=== PATIENT | male | born 1965 | race Caucasian/White ===

== ENCOUNTER 2019-01-27 11:37 | Inpatient (IN) | payer OTHER ==
[2019-01-27 12:49] VITALS: BMI 29.2
--- NOTE | 2019-01-27 13:49 | HP ---
CIWA Score Nausea/Vomitin Muscle Tremors: 2 Anxiety: 2 Agitation: 2 Paroxysmal Sweats: 1-Minimal Palms Moist Orientation: 0-Oriented Tacttile Disturbances: 1-Very Mild Itch/Numbness Auditory Disturbances: 1-Very Mild Visual Disturbances: 0-None Headache: 2-Mild CIWA-Ar Total Score: 13 - Admission Criteria [facility] Guidelines: Admission for Medically Managed Detox: Requires at least one of the followin. CIWA greater than 12 2. Seizures within the past 24 hours 3. Delirium tremens within the past 24 hours 4. Hallucinations within the past 24 hours 5. Acute intervention needed for co occurring medical disorder 6. Acute intervention needed for co occurring psychiatric disorder 7. Severe withdrawal that cannot be handled at a lower level of care (continued vomiting, continued diarrhea, abnormal vital signs) requiring intravenous medication and/or fluids 8. Admission ROS S - HPI Chief Complaint: i need help to stop drinking alcohol,cocaine daily,heroin abused,mmtp 50 mgs/day ,last medicated today Allergies/Adverse Reactions: Allergies Allergy/AdvReac Type Severity Reaction Status Date / Time No Known Allergies Allergy Verified 01/27/19 12:29 History of Present Illness: this 53 years old male with alcohol and cocaine dependence,heroin abused,mmtp 50 mgs/day,last medicated today, last detox 05/05 ayde beebe completed but keep relapsing nicotine dependence requesting nicotine patch and gum weight loss longest period of sobriety 14 months plan for rehab after detox seizure last 18 months ago,on keppra 500 mgs po bid Exam Limitations: No Limitations - Ebola screening Have you traveled outside of the country in the last 21 days: No (N) Have you had contact with anyone from an Ebola affected area: No Do you have a fever: No - Review of Systems Constitutional: Loss of Appetite, Night Sweats, Changes in sleep, Weakness, Unintentional Wgt. Loss EENT: reports: Tearing, Nose Congestion Respiratory: reports: No Symptoms reported Cardiac: reports: No Symptoms Reported GI: reports: Nausea, Poor Appetite, Vomiting, Abdominal cramping : reports: No Symptoms Reported Musculoskeletal: reports: Back Pain, Muscle Pain Integumentary: reports: Dryness Neuro: reports: Headache, Tremors Endocrine: reports: No Symptoms Reported Hematology: reports: No Symptoms Reported Psychiatric: reports: No Sypmtoms Reported, Judgement Intact, Mood/Affect Appropiate, Orientated x3 Other Systems: Reviewed and Negative Patient History - Patient Medical History Hx Anemia: No Hx Asthma: No Hx Chronic Obstructive Pulmonary Disease (COPD): No Hx Cancer: No Hx Cardiac Disorders: No Hx Congestive Heart Failure: No Hx Hypertension: No Hx Hypercholesterolemia: No Hx Pacemaker: No HX Cerebrovascular Accident: No Hx Seizures: Yes (last 18 mpnths ago) Hx Gastrointestinal Disorders: No Hx Liver Disease: No Hx Genitourinary Disorders: No Hx Sexually Transmitted Disorders: No Hx Renal Disease (ESRD): No Hx Thyroid Disease: No Hx Human Immunodeficiency Virus (HIV): No (last 12/07 negative) Hx Hepatitis C: No Hx Depression: No Hx Suicide Attempt: No Hx Bipolar Disorder: No Hx Schizophrenia: No Other Medical History: no suicidal,no homicidal,seizre on keppra - Patient Surgical History Past Surgical History: No - PPD History Previous Implant?: Yes Documented Results: Negative w/o proof Implanted On Prior [facility] Admission?: No PPD to be Administered?: Yes - Smoking Cessation Smoking history: Current every day smoker Have you smoked in the past 12 months: Yes Aproximately how many cigarettes per day: 7 Hx Chewing Tobacco Use: No Initiated information on smoking cessation: Yes 'Breaking Loose' booklet given: 01/27/19 - Substance & Tx. History Hx Alcohol Use: Yes Hx Substance Use: Yes Substance Use Type: Alcohol, Cocaine, Heroin - Substances abused Heroin Substance route: Inhalation Frequency: Daily Amount used: 5 bags Age of first use: 18 Date of last use: 01/27/19 Cocaine Substance route: Smoking Frequency: Daily Amount used: 2 grams Age of first use: 18 Date of last use: 01/27/19 Alcohol Substance route: Oral Frequency: Daily Amount used: 3-6 pks of 12ozs beer, 2 pints of vodka Age of first use: 11 Date of last use: 01/27/19 Family Disease History - Family Disease History Family History: Denies Admission Physical Exam S - Vital Signs Vital Signs: Vital Signs - 24 hr 01/27/19 12:34 Temperature 97 F L Pulse Rate 58 L Respiratory 18 Rate Blood Pressure 136/85 - Physical General Appearance: Yes: Moderate Distress, Tremorous, Irritable, Sweating, Anxious HEENTM: Yes: Normal ENT Inspection, [place], Pharynx Normal Respiratory: Yes: Within Normal Limits, Lungs Clear, Normal Breath Sounds Neck: Yes: Within Normal Limits, Supple, Trachea in good position Breast: Yes: Within Normal Limits Cardiology: Yes: Within Normal Limits, Regular Rhythm, Regular Rate, S1, S2 Abdominal: Yes: Within Normal Limits, Normal Bowel Sounds, Non Tender, Flat, Soft Genitourinary: Yes: Within Normal Limits Back: Yes: Muscle Spasm Musculoskeletal: Yes: full range of Motion, Back pain, Muscle Pain Extremities: Yes: Within Normal Limits, Normal Range of Motion, Tremors Neurological: Yes: rack cleaner II-XII NML intact, Fully Oriented, Alert, Motor Strength 5/5 Integumentary: Yes: Dry Lymphatic: Yes: Within Normal Limits - Diagnostic (1) Alcohol dependence with uncomplicated withdrawal Current Visit: Yes Status: Acute (2) Cocaine dependence Current Visit: Yes Status: Acute (3) Heroin abuse Current Visit: Yes Status: Acute (4) Methadone maintenance therapy patient Current Visit: Yes Status: Acute (5) Weight loss Current Visit: Yes Status: Acute (6) Seizure Current Visit: Yes Status: Acute (7) Nicotine dependence Current Visit: Yes Status: Acute Cleared for Admission [facility] - Detox or Rehab [facility] Level of Care: Medically Managed Detox Regimen/Protocol: Librium Breathalyzer - Breathalyzer Breathalyzer: 0 Urine Drug Screen - Test Device Lot number: [id number] Expiration date: 09/17/20 - Control Is test valid?: Yes - Results Drug screen NEGATIVE: No Urine drug screen results: THC-Marijuana, AGATHA-Cocaine, FEN-Fentanyl, MOP-Opiates , MTD-Methadone, BZO-Benzodiazepines Inpatient Rehab Admission - Rehab Decision to Admit Inpatient rehab admission?: No
[2019-01-27] MEDS ORDERED: MAG HYDROX/AL HYDROX/SIMETH 30 ML UNIT-DOSE CUP PO PRN (14:00)
[2019-01-27] MEDS ORDERED: MENTHOL/PHENOL 1 EACH UD MM PRN (14:00)
[2019-01-27] MEDS ORDERED: IBUPROFEN 400 MG TABLET (FP) PO PRN (14:00)
[2019-01-27] MEDS ORDERED: ACETAMINOPHEN 325 MG TABLET (FP) PO PRN ×2 (14:00)
[2019-01-27] MEDS ORDERED: MELATONIN 5 MG TABLETS PO PRN (14:00)
[2019-01-27] MEDS ORDERED: MAGNESIUM CITRATE 300 ML BOTTLE PO PRN (14:00)
[2019-01-27] MEDS ORDERED: NICOTINE POLACRILEX 2 MG GUM BUC PRN (14:00)
[2019-01-27] MEDS ORDERED: MAGNESIUM HYDROX 2400MG/30ML ORAL SUSPENSION 30 ML CUP PO PRN (14:00)
[2019-01-27] MEDS ORDERED: chlordiazePOXIDE HCL 25 MG CAPSULE PO PRN (14:00)
[2019-01-27] MEDS ORDERED: BISMUTH SUBSALICYLATE 524 MG/30 ML UD PO PRN (14:00)
[2019-01-27] MEDS ORDERED: METHOCARBAMOL 500 MG TABLET PO PRN (14:00)
[2019-01-27] MEDS: NICOTINE 21 MG/24 HOURS TOPICAL PATCH TD SCH (15:47)
--- NOTE | 2019-01-27 16:39 | EKG ---
Test Reason : Blood Pressure : / mmHG Vent. Rate : 042 BPM Atrial Rate : 042 BPM P-R Int : 162 ms QRS Dur : 144 ms QT Int : 532 ms P-R-T Axes : 057 049 050 degrees QTc Int : 444 ms MARKED SINUS BRADYCARDIA RIGHT BUNDLE BRANCH BLOCK ABNORMAL ECG NO PREVIOUS ECGS AVAILABLE Confirmed by JOSE CRUM MD ([id number]) on 01/27/2019 4:39:10 PM Referred By: Confirmed By:JOSE CRUM MD
[2019-01-27 17:06] LABS: HEMATOCRIT 39.8 % (35.4-49); HEMOGLOBIN 13.4 GM/dL (11.7-16.9); MCH 29.8 pg (25.7-33.7); MCHC 33.6 g/dl (32.0-35.9); MEAN CELL VOLUME 88.8 fl (80-96); MEAN PLT VOLUME 10.7 fl (7.5-11.1); PLATELET COUNT 204 K/MM3 (134-434); RBC 4.49 M/mm3 (4.00-5.60); RDW 14.3 % (11.9-15.9); WHITE BLOOD COUNT 6.7 K/mm3 (4.0-10.0)
[2019-01-27] MEDS: chlordiazePOXIDE HCL 25 MG CAPSULE PO SCH ×2 (17:24→22:08)
[2019-01-27 17:30] LABS: ALBUMIN 3.6 g/dl (3.4-5.0); ALK PHOS 61 U/L (45-117); ANION GAP 3 MMOL/L (8-16); BILIRUBIN,TOTAL 0.3 mg/dL (0.2-1); BLOOD UREA NITROGEN 12 mg/dL (7-18); CALCIUM 9.2 mg/dL (8.5-10.1); CHLORIDE 102 mmol/L (98-107); CO2 30 mmol/L (21-32); GLUCOSE,RANDOM 116 mg/dL (74-106); POTASSIUM 4.2 mmol/L (3.5-5.1); SGOT/AST 12 U/L (15-37); SGPT/ALT 28 U/L (13-61); SODIUM 136 mmol/L (136-145); TOT PROT 6.9 g/dl (6.4-8.2)
[2019-01-27 17:51] LABS: SICKLE CELL SCREEN NEGATIVE (NEGATIVE)
[2019-01-27] MEDS: THIAMINE HCL 100 MG TABLET (FP) PO SCH (22:09)
[2019-01-27] MEDS: levETIRAcetam 500 MG TABLET (FP) PO SCH (22:09)
[2019-01-28] MEDS: chlordiazePOXIDE HCL 25 MG CAPSULE PO SCH ×4 (05:35→22:52)
[2019-01-28] MEDS ORDERED: METHADONE HCL 40 MG DISPERSABLE TABLET PO SCH (08:45)
[2019-01-28] MEDS ORDERED: METHADONE HCL 10 MG TABLET ONE (09:36)
[2019-01-28] MEDS ORDERED: METHADONE HCL 40 MG DISPERSABLE TABLET ONE (09:36)
[2019-01-28] MEDS: PRENATAL VITAMINS W/ FOLIC ACID TABLET (FP) PO SCH (11:12)
[2019-01-28] MEDS: levETIRAcetam 500 MG TABLET (FP) PO SCH ×2 (11:12→22:53)
[2019-01-28] MEDS: METHADONE 40 MG, METHADONE 10 MG PO SCH (11:13)
[2019-01-28] MEDS: NICOTINE 21 MG/24 HOURS TOPICAL PATCH TD SCH (11:13)
--- NOTE | 2019-01-28 11:32 | PN ---
S CIWA - CIWA Score Nausea/Vomitin Muscle Tremors: 2 Anxiety: 2 Agitation: 2 Paroxysmal Sweats: 1-Minimal Palms Moist Orientation: 0-Oriented Tacttile Disturbances: 1-Very Mild Itch/Numbness Auditory Disturbances: 1-Very Mild Visual Disturbances: 0-None Headache: 2-Mild CIWA-Ar Total Score: 13 [facility] Progress Note (SOAP) Subjective: alert,irritable,anxious,interrupted sleep,pain in the body,left leg ,localized cellulitis Objective: 01/28/19 11:29 Vital Signs Temperature 97.9 F 01/28/19 09:18 Pulse Rate 66 01/28/19 09:18 Respiratory Rate 20 01/28/19 09:18 Blood Pressure 120/77 01/28/19 09:18 O2 Sat by Pulse Oximetry (%) Vital Signs Temperature 97.9 F 01/28/19 09:18 Pulse Rate 66 01/28/19 09:18 Respiratory Rate 20 01/28/19 09:18 Blood Pressure 120/77 01/28/19 09:18 O2 Sat by Pulse Oximetry (%) Laboratory Last Values WBC 6.7 K/mm3 (4.0-10.0) 01/27/19 13:40 RBC 4.49 M/mm3 (4.00-5.60) 01/27/19 13:40 Hgb 13.4 GM/dL (11.7-16.9) 01/27/19 13:40 Hct 39.8 % (35.4-49) 01/27/19 13:40 MCV 88.8 fl (80-96) 01/27/19 13:40 MCH 29.8 pg (25.7-33.7) 01/27/19 13:40 MCHC 33.6 g/dl (32.0-35.9) 01/27/19 13:40 RDW 14.3 % (11.9-15.9) 01/27/19 13:40 Plt Count 204 K/MM3 (134-434) 01/27/19 13:40 MPV 10.7 fl (7.5-11.1) 01/27/19 13:40 Sickle Cell Screen Negative (NEGATIVE) 01/27/19 13:40 Sodium 136 mmol/L (136-145) 01/27/19 13:40 Potassium 4.2 mmol/L (3.5-5.1) 01/27/19 13:40 Chloride 102 mmol/L (98-107) 01/27/19 13:40 Carbon Dioxide 30 mmol/L (21-32) 01/27/19 13:40 Anion Gap 3 MMOL/L (8-16) L 01/27/19 13:40 BUN 12 mg/dL (7-18) 01/27/19 13:40 Creatinine 1.0 mg/dL (0.55-1.3) 01/27/19 13:40 Creat Clearance w eGFR 78.78 (>60) 01/27/19 13:40 Random Glucose 116 mg/dL (74-106) H 01/27/19 13:40 Calcium 9.2 mg/dL (8.5-10.1) 01/27/19 13:40 Total Bilirubin 0.3 mg/dL (0.2-1) 01/27/19 13:40 AST 12 U/L (15-37) L 01/27/19 13:40 ALT 28 U/L (13-61) 01/27/19 13:40 Alkaline Phosphatase 61 U/L (45-117) 01/27/19 13:40 Total Protein 6.9 g/dl (6.4-8.2) 01/27/19 13:40 Albumin 3.6 g/dl (3.4-5.0) 01/27/19 13:40 Assessment: 01/28/19 11:30 withdrawal symptom Plan: continue detox,regimen adjusted
--- NOTE | 2019-01-28 11:39 | PN ---
[facility] Progress Note Note: please disregard the note on this patient 1t 11.27 am,belong to other patient
--- NOTE | 2019-01-28 11:41 | PN ---
S CIWA - CIWA Score Nausea/Vomitin Muscle Tremors: 2 Anxiety: 2 Agitation: 2 Paroxysmal Sweats: 2 Orientation: 0-Oriented Tacttile Disturbances: 1-Very Mild Itch/Numbness Auditory Disturbances: 1-Very Mild Visual Disturbances: 0-None Headache: 2-Mild CIWA-Ar Total Score: 14 S Progress Note (SOAP) Subjective: alert,irritable,interrupted sleep,tremor Objective: 01/28/19 11:40 Vital Signs Temperature 97.9 F 01/28/19 09:18 Pulse Rate 66 01/28/19 09:18 Respiratory Rate 20 01/28/19 09:18 Blood Pressure 120/77 01/28/19 09:18 O2 Sat by Pulse Oximetry (%) 01/28/19 11:40 Laboratory Last Values WBC 6.7 K/mm3 (4.0-10.0) 01/27/19 13:40 RBC 4.49 M/mm3 (4.00-5.60) 01/27/19 13:40 Hgb 13.4 GM/dL (11.7-16.9) 01/27/19 13:40 Hct 39.8 % (35.4-49) 01/27/19 13:40 MCV 88.8 fl (80-96) 01/27/19 13:40 MCH 29.8 pg (25.7-33.7) 01/27/19 13:40 MCHC 33.6 g/dl (32.0-35.9) 01/27/19 13:40 RDW 14.3 % (11.9-15.9) 01/27/19 13:40 Plt Count 204 K/MM3 (134-434) 01/27/19 13:40 MPV 10.7 fl (7.5-11.1) 01/27/19 13:40 Sickle Cell Screen Negative (NEGATIVE) 01/27/19 13:40 Sodium 136 mmol/L (136-145) 01/27/19 13:40 Potassium 4.2 mmol/L (3.5-5.1) 01/27/19 13:40 Chloride 102 mmol/L (98-107) 01/27/19 13:40 Carbon Dioxide 30 mmol/L (21-32) 01/27/19 13:40 Anion Gap 3 MMOL/L (8-16) L 01/27/19 13:40 BUN 12 mg/dL (7-18) 01/27/19 13:40 Creatinine 1.0 mg/dL (0.55-1.3) 01/27/19 13:40 Creat Clearance w eGFR 78.78 (>60) 01/27/19 13:40 Random Glucose 116 mg/dL (74-106) H 01/27/19 13:40 Calcium 9.2 mg/dL (8.5-10.1) 01/27/19 13:40 Total Bilirubin 0.3 mg/dL (0.2-1) 01/27/19 13:40 AST 12 U/L (15-37) L 01/27/19 13:40 ALT 28 U/L (13-61) 01/27/19 13:40 Alkaline Phosphatase 61 U/L (45-117) 01/27/19 13:40 Total Protein 6.9 g/dl (6.4-8.2) 01/27/19 13:40 Albumin 3.6 g/dl (3.4-5.0) 01/27/19 13:40 Assessment: 01/28/19 11:41 withdrawal symptom Plan: continue detox
[2019-01-28 12:33] LABS: URINE APPEARANCE Clear; URINE BILIRUBIN Negative (NEGATIVE); URINE COLOR Yellow; URINE GLUCOSE (UA) Negative (NEGATIVE); URINE KETONE Negative (NEGATIVE); URINE LEUK ESTERASE Trace (NEGATIVE); URINE NITRITE Negative (NEGATIVE); URINE PROTEIN Negative (NEGATIVE); URINE UROBILINOGEN 0.2 mg/dL (0.2-1.0)
[2019-01-28 13:09] LABS: EPI CELLS OCCASIONAL /HPF; URINE WBC 2 /hpf (0-5)
[2019-01-28] MEDS: hydrOXYzine PAMOATE 25 MG CAPSULE (FP) PO PRN ×2 (17:37→22:52)
[2019-01-28] MEDS: THIAMINE HCL 100 MG TABLET (FP) PO SCH (22:53)
[2019-01-29] MEDS ORDERED: METHADONE HCL 10 MG TABLET ONE (05:37)
[2019-01-29] MEDS ORDERED: METHADONE HCL 40 MG DISPERSABLE TABLET ONE (05:37)
[2019-01-29] MEDS: METHADONE 40 MG, METHADONE 10 MG PO SCH (05:37)
[2019-01-29] MEDS: chlordiazePOXIDE HCL 25 MG CAPSULE PO SCH ×2 (05:38→10:13)
[2019-01-29] MEDS: levETIRAcetam 500 MG TABLET (FP) PO SCH ×2 (10:13→22:21)
[2019-01-29] MEDS: PRENATAL VITAMINS W/ FOLIC ACID TABLET (FP) PO SCH (10:13)
[2019-01-29] MEDS: NICOTINE 21 MG/24 HOURS TOPICAL PATCH TD SCH (10:13)
--- NOTE | 2019-01-29 11:28 | PN ---
S Progress Note (SOAP) Subjective: Nausea, abdominal cramps with occasional chills Objective: 01/29/19 11:27 Vital Signs 01/29/19 01/29/19 01/29/19 03:30 06:23 10:00 Temperature 98.1 F 97.7 F Pulse Rate 67 65 Respiratory 19 19 18 Rate Blood Pressure 105/65 135/62 Laboratory Last Values WBC 6.7 K/mm3 (4.0-10.0) 01/27/19 13:40 RBC 4.49 M/mm3 (4.00-5.60) 01/27/19 13:40 Hgb 13.4 GM/dL (11.7-16.9) 01/27/19 13:40 Hct 39.8 % (35.4-49) 01/27/19 13:40 MCV 88.8 fl (80-96) 01/27/19 13:40 MCH 29.8 pg (25.7-33.7) 01/27/19 13:40 MCHC 33.6 g/dl (32.0-35.9) 01/27/19 13:40 RDW 14.3 % (11.9-15.9) 01/27/19 13:40 Plt Count 204 K/MM3 (134-434) 01/27/19 13:40 MPV 10.7 fl (7.5-11.1) 01/27/19 13:40 Sickle Cell Screen Negative (NEGATIVE) 01/27/19 13:40 Sodium 136 mmol/L (136-145) 01/27/19 13:40 Potassium 4.2 mmol/L (3.5-5.1) 01/27/19 13:40 Chloride 102 mmol/L (98-107) 01/27/19 13:40 Carbon Dioxide 30 mmol/L (21-32) 01/27/19 13:40 Anion Gap 3 MMOL/L (8-16) L 01/27/19 13:40 BUN 12 mg/dL (7-18) 01/27/19 13:40 Creatinine 1.0 mg/dL (0.55-1.3) 01/27/19 13:40 Creat Clearance w eGFR 78.78 (>60) 01/27/19 13:40 Random Glucose 116 mg/dL (74-106) H 01/27/19 13:40 Calcium 9.2 mg/dL (8.5-10.1) 01/27/19 13:40 Total Bilirubin 0.3 mg/dL (0.2-1) 01/27/19 13:40 AST 12 U/L (15-37) L 01/27/19 13:40 ALT 28 U/L (13-61) 01/27/19 13:40 Alkaline Phosphatase 61 U/L (45-117) 01/27/19 13:40 Total Protein 6.9 g/dl (6.4-8.2) 01/27/19 13:40 Albumin 3.6 g/dl (3.4-5.0) 01/27/19 13:40 Urine Color Yellow 01/28/19 07:00 Urine Appearance Clear 01/28/19 07:00 Urine pH 7.0 (5.0-8.0) 01/28/19 07:00 Ur Specific [place] 1.010 (1.010-1.035) 01/28/19 07:00 Urine Protein Negative (NEGATIVE) 01/28/19 07:00 Urine Glucose (UA) Negative (NEGATIVE) 01/28/19 07:00 Urine Ketones Negative (NEGATIVE) 01/28/19 07:00 Urine Blood Negative (NEGATIVE) 01/28/19 07:00 Urine Nitrite Negative (NEGATIVE) 01/28/19 07:00 Urine Bilirubin Negative (NEGATIVE) 01/28/19 07:00 Urine Urobilinogen 0.2 mg/dL (0.2-1.0) 01/28/19 07:00 Ur Leukocyte Esterase Trace (NEGATIVE) 01/28/19 07:00 Urine WBC (Auto) 2 /hpf (0-5) 01/28/19 07:00 U Epithel Cells (Auto) Occasional /HPF 01/28/19 07:00 RPR Titer Nonreactive (NONREACTIVE) 01/27/19 13:40 Labs noted Assessment: 01/29/19 11:28 Withdrawal sx Plan: Continue detox
[2019-01-29] MEDS ORDERED: chlordiazePOXIDE HCL 10 MG CAPSULE PO PRN (17:00)
[2019-01-29] MEDS: chlordiazePOXIDE HCL 10 MG CAPSULE PO SCH ×2 (18:28→22:21)
[2019-01-29] MEDS: THIAMINE HCL 100 MG TABLET (FP) PO SCH (22:21)
[2019-01-30] MEDS ORDERED: METHADONE HCL 10 MG TABLET ONE (04:29)
[2019-01-30] MEDS ORDERED: METHADONE HCL 40 MG DISPERSABLE TABLET ONE (04:29)
[2019-01-30] MEDS: chlordiazePOXIDE HCL 10 MG CAPSULE PO SCH ×3 (06:14→17:22)
[2019-01-30] MEDS: METHADONE 40 MG, METHADONE 10 MG PO SCH (06:14)
[2019-01-30] MEDS: levETIRAcetam 500 MG TABLET (FP) PO SCH ×2 (10:26→22:07)
[2019-01-30] MEDS: PRENATAL VITAMINS W/ FOLIC ACID TABLET (FP) PO SCH (10:27)
[2019-01-30] MEDS: NICOTINE 21 MG/24 HOURS TOPICAL PATCH TD SCH (10:27)
--- NOTE | 2019-01-30 11:07 | PN ---
[facility] Progress Note Note: PATIENT CONTINUES WITH DETOX FROM ETOH. ON MMTP. PATIENT STATES HE FEELS BETTER. C/O OCCASIONAL NIGHT SWEATS AND CHILLS. Laboratory Tests 01/27/19 01/27/19 01/27/19 13:40 13:40 13:40 WBC 6.7 RBC 4.49 Hgb 13.4 Hct 39.8 MCV 88.8 MCH 29.8 MCHC 33.6 RDW 14.3 Plt Count 204 MPV 10.7 Sickle Cell Screen Cancelled Negative Sodium 136 Potassium 4.2 Chloride 102 Carbon Dioxide 30 Anion Gap 3 L BUN 12 Creatinine 1.0 Creat Clearance w eGFR 78.78 Random Glucose 116 H Calcium 9.2 Total Bilirubin 0.3 AST 12 L ALT 28 Alkaline Phosphatase 61 Total Protein 6.9 Albumin 3.6 Urine Color Urine Appearance Urine pH Ur Specific [place] Urine Protein Urine Glucose (UA) Urine Ketones Urine Blood Urine Nitrite Urine Bilirubin Urine Urobilinogen Ur Leukocyte Esterase Urine WBC (Auto) U Epithel Cells (Auto) RPR Titer 01/27/19 01/28/19 13:40 07:00 WBC RBC Hgb Hct MCV MCH MCHC RDW Plt Count MPV Sickle Cell Screen Sodium Potassium Chloride Carbon Dioxide Anion Gap BUN Creatinine Creat Clearance w eGFR Random Glucose Calcium Total Bilirubin AST ALT Alkaline Phosphatase Total Protein Albumin Urine Color Yellow Urine Appearance Clear Urine pH 7.0 Ur Specific [place] 1.010 Urine Protein Negative Urine Glucose (UA) Negative Urine Ketones Negative Urine Blood Negative Urine Nitrite Negative Urine Bilirubin Negative Urine Urobilinogen 0.2 Ur Leukocyte Esterase Trace Urine WBC (Auto) 2 U Epithel Cells (Auto) Occasional RPR Titer Nonreactive Vital Signs Temperature 98.4 F 01/30/19 09:18 Pulse Rate 76 01/30/19 09:18 Respiratory Rate 16 01/30/19 09:18 Blood Pressure 122/76 01/30/19 09:18 O2 Sat by Pulse Oximetry (%) PE: ALERT AND ORIENTED X 3 SKIN WARM AND DRY EXT NO VISIBLE TREMORS, AMB AD AYAN A/P WITHDRAWAL SX CONTINUE DETOX FOR D/C TOMORROW PENDING REHAB BED ENCOURAGE ORAL FLUIDS CONTINUE TO MONITOR CLINICALLY
[2019-01-30] MEDS: THIAMINE HCL 100 MG TABLET (FP) PO SCH (22:07)
[2019-01-31] MEDS ORDERED: METHADONE HCL 10 MG TABLET ONE (04:14)
[2019-01-31] MEDS ORDERED: METHADONE HCL 40 MG DISPERSABLE TABLET ONE (04:14)
[2019-01-31] MEDS: METHADONE 40 MG, METHADONE 10 MG PO SCH (05:24)
[2019-01-31] MEDS: chlordiazePOXIDE HCL 10 MG CAPSULE PO SCH (05:24)
[2019-01-31 06:51] VITALS: BP 122/76; PULSE 79; TEMP 97.5
--- NOTE | 2019-01-31 15:02 | DS ---
[facility] Detox Discharge Summary Admission Date: 01/27/19 Discharge Date: 01/31/19 - History Present History: Alcohol Dependence, Cocaine Dependence, Opioid Dependence, MMTP Additional Comments: PATIENT GOING TO [facility] ([place], [place]) TO APPLY FOR ADMISSION THERE. PATIENT DECLINED OFFER OF MEDICATION PRESCRIPTION FOR HOME MEDICATION ( KEPPRA) AT TIME OF DISCHARGE FROM DETOX UNIT, NOTING THAT HE CURRENTLY HAS PRESCRIPTION RENEWAL WAITING FOR HIM AT HIS PHARMACY. PATIENT WAS DISCHARGED FROM DETOX UNIT IN STABLE MEDICAL CONDITION. Pertinent Past History: M.M.T.P., Weight Loss, History Of Seizures, Nicotine Dependence. - Physical Exam Results Vital Signs: Vital Signs Temperature 97.5 F L 01/31/19 03:00 Pulse Rate 79 01/31/19 03:00 Respiratory Rate 18 01/31/19 03:30 Blood Pressure 122/76 01/31/19 03:00 O2 Sat by Pulse Oximetry (%) Pertinent Admission Physical Exam Findings: WITHDRAWAL SYMPTOMS. Laboratory Tests 01/27/19 01/27/19 01/27/19 13:40 13:40 13:40 WBC 6.7 RBC 4.49 Hgb 13.4 Hct 39.8 MCV 88.8 MCH 29.8 MCHC 33.6 RDW 14.3 Plt Count 204 MPV 10.7 Sickle Cell Screen Cancelled Negative Sodium 136 Potassium 4.2 Chloride 102 Carbon Dioxide 30 Anion Gap 3 L BUN 12 Creatinine 1.0 Creat Clearance w eGFR 78.78 Random Glucose 116 H Calcium 9.2 Total Bilirubin 0.3 AST 12 L ALT 28 Alkaline Phosphatase 61 Total Protein 6.9 Albumin 3.6 Urine Color Urine Appearance Urine pH Ur Specific [place] Urine Protein Urine Glucose (UA) Urine Ketones Urine Blood Urine Nitrite Urine Bilirubin Urine Urobilinogen Ur Leukocyte Esterase Urine WBC (Auto) U Epithel Cells (Auto) RPR Titer 01/27/19 01/28/19 13:40 07:00 WBC RBC Hgb Hct MCV MCH MCHC RDW Plt Count MPV Sickle Cell Screen Sodium Potassium Chloride Carbon Dioxide Anion Gap BUN Creatinine Creat Clearance w eGFR Random Glucose Calcium Total Bilirubin AST ALT Alkaline Phosphatase Total Protein Albumin Urine Color Yellow Urine Appearance Clear Urine pH 7.0 Ur Specific [place] 1.010 Urine Protein Negative Urine Glucose (UA) Negative Urine Ketones Negative Urine Blood Negative Urine Nitrite Negative Urine Bilirubin Negative Urine Urobilinogen 0.2 Ur Leukocyte Esterase Trace Urine WBC (Auto) 2 U Epithel Cells (Auto) Occasional RPR Titer Nonreactive LABS NOTED. - Treatment Hospital Course: Detox Protocol Followed, Detoxed Safely, Responded well, Discharged Condition Good, Rehab Referral Accepted Patient has Accepted a Rehab Referral to: [facility] ([place], [place]) . - Medication Discharge Medications: Ambulatory Orders levETIRAcetam [Keppra -] 1,000 mg PO DAILY 01/27/19 - Diagnosis (1) Alcohol dependence with uncomplicated withdrawal Status: Acute (2) Cocaine dependence Status: Acute Qualifiers: Substance use status: uncomplicated Qualified Code(s): F14.20 - Cocaine dependence, uncomplicated (3) Heroin abuse Status: Acute (4) Methadone maintenance therapy patient Status: Chronic (5) Nicotine dependence Status: Acute Qualifiers: Nicotine product type: cigarettes Substance use status: uncomplicated Qualified Code(s): F17.210 - Nicotine dependence, cigarettes, uncomplicated (6) Seizure Status: Acute (7) Weight loss Status: Acute - AMA Did Patient Leave Against Medical Advice: No
== END 2019-01-31 09:37 | disposition home or self-care (01) | DRG 773 ==
LOC: YASAS 11:37 → Y6N 14:09
PROVIDERS: ADMIT Surgery; ATTEND Surgery
PROC: HZ2ZZZZ Detoxification Services for Substance Abuse Treatment (ICD-10-PCS; principal; 2019-01-27)
DX: F10.230 Alcohol dependence with withdrawal, uncomplicated (principal); F14.20 Cocaine dependence, uncomplicated; F11.20 Opioid dependence, uncomplicated; F17.210 Nicotine dependence, cigarettes, uncomplicated; R63.4 Abnormal weight loss; Z68.29 Body mass index [BMI] 29.0-29.9, adult; Z86.69 Personal history of other diseases of the nervous system and sense organs; Z59.0 Homelessness
CPT/HCPCS: 36415; 80053; 81003; 85027; 85660; 86593; 93005; 93010